=== PATIENT | female | born 1950 | race Caucasian/White ===

== ENCOUNTER 2018-12-18 15:34 | Inpatient (IN) ==
[2018-12-18 17:02] LABS: Eosinophils # 0.2 10*3/uL (0.0-0.87); Hematocrit 26.8 VOL% (35.7-47.0); Hemoglobin 7.6 GM/DL (12.0-16.0); Immature Granulocytes % 0.3 %; Immature Granulocytes Absolute 0.02 #; Lymphocytes # 0.6 10*3/uL (1.4-4.0); Lymphocytes % 7.4 % (21.3-54.2); Mean Corpuscular HGB Conc 28.4 GM/DL (32-36); Mean Corpuscular Hemoglobin 24 PG (27-34); Mean Corpuscular Volume 85.6 FL (87-102); Mean Platelet Volume 11.7 FL (9.6-12.0); Monocytes # 0.7 10*3/uL (0.11-0.8); Neutrophils # 6.2 10*3/uL (1.4-7.4); Neutrophils % 81.3 % (38.7-73.9); Platelet Count 217 T/CUMM (130-400); Red Blood Count 3.13 MC/CUMM (3.8-5.5); Red Cell Distribution Width 17.4 % (9.3-17.3); White Blood Count 7.7 T/CUMM (4-12)
[2018-12-18 17:17] LABS: Alanine Aminotransferase 37 U/L (13-56); Albumin 2.8 G/DL (3.4-5.0); Alkaline Phosphatase 148 U/L (45-117); Aspartate Amino Transferase 35 U/L (0-37); Blood Urea Nitrogen 128 MG/DL (7-18); Calcium 8.4 MG/DL (8.5-10.1); Glucose 178 MG/DL (74-106); Osmolality,Calculated 325.3 MOS/KG (273-304); Potassium 4.8 MMOL/L (3.5-5.1); Sodium 141 MMOL/L (136-145); Total Protein 7.2 G/DL (6.4-8.3)
[2018-12-18 17:19] LABS: Troponin I 0.052 NG/ML (0.00-0.045)
[2018-12-18 17:22] LABS: PT Patient Result 68.9 SECS
[2018-12-18 17:26] LABS: INR 6.4
[2018-12-18] MEDS ORDERED: FUROSEMIDE 40 MG/4 ML VIAL IV STA (17:29)
[2018-12-18] MEDS ORDERED: PHYTONADIONE 5 MG/5 ML ORAL.SYR PO ONE (17:30)
[2018-12-18] MEDS ORDERED: guaiFENesin/DM ER 600-30 MG TABLET PO PRN (18:33)
[2018-12-18] MEDS ORDERED: NICOTINE 21 MG/24 HR PATCH TRANSDERM PRN (18:33)
[2018-12-18] MEDS ORDERED: ONDANSETRON 4 MG/2 ML VIAL IV PRN (18:33)
[2018-12-18] MEDS ORDERED: LACTULOSE 20 GM/30 ML UDCUP PO PRN (18:33)
[2018-12-18] MEDS ORDERED: DOCUSATE SODIUM 100 MG CAPSULE PO PRN (18:33)
[2018-12-18] MEDS ORDERED: ALBUTEROL 2.5 MG/3 ML NEB RESP TX PRN (18:58)
[2018-12-18 19:20] LABS: % Iron Saturation 4.1 % (18-50); Ferritin 70.3 ng/ml (8-252)
[2018-12-18 19:31] LABS: Folate > 24.0 NG/ML (5.4-24.0); Vitamin B12 487 PG/ML (211-911)
[2018-12-18] MEDS ORDERED: cefTRIAXone 1,000 MG in SYRINGE 1 EACH IV SCH (20:30)
[2018-12-18] MEDS ORDERED: SIMVASTATIN 20 MG TABLET PO SCH (21:00)
[2018-12-18] MEDS ORDERED: AZITHROMYCIN INJ 500 MG in SODIUM CHLORIDE 0.9% 250 ML IV SCH (21:00)
[2018-12-18 21:47] LABS: Anisocytosis 2+; Hypochromasia 1+; Ovalocytes Few
[2018-12-18] MEDS: CARVEDILOL 6.25 MG TABLET PO SCH (21:47)
[2018-12-18 21:48] LABS: Acanthocytes Few; Platelet Estimate Normal
[2018-12-18] MEDS: FLUTICASONE/SALMETEROL 500-50 DISKUS 14 DOSE INH SCH (21:48)
[2018-12-18 21:49] LABS: Elliptocytes Few
[2018-12-19 05:16] LABS: Eosinophils # 0.1 10*3/uL (0.0-0.87); Hemoglobin 6.5 GM/DL (12.0-16.0); Immature Granulocytes % 1.2 %; Immature Granulocytes Absolute 0.07 #; Lymphocytes # 0.4 10*3/uL (1.4-4.0); Lymphocytes % 7.2 % (21.3-54.2); Mean Corpuscular HGB Conc 28.3 GM/DL (32-36); Mean Corpuscular Hemoglobin 24 PG (27-34); Mean Corpuscular Volume 85.2 FL (87-102); Mean Platelet Volume 12.4 FL (9.6-12.0); Monocytes # 0.6 10*3/uL (0.11-0.8); Monocytes % 10.2 % (1.7-12.7); Neutrophils # 4.7 10*3/uL (1.4-7.4); Neutrophils % 79.4 % (38.7-73.9); Platelet Count 187 T/CUMM (130-400); Red Cell Distribution Width 17.5 % (9.3-17.3); White Blood Count 5.9 T/CUMM (4-12)
[2018-12-19 05:35] LABS: INR 6.4; PT Patient Result 68.8 SECS
[2018-12-19 05:44] LABS: Albumin 2.5 G/DL (3.4-5.0); Calcium 8.1 MG/DL (8.5-10.1); Osmolality,Calculated 327.8 MOS/KG (273-304); Potassium 4.8 MMOL/L (3.5-5.1); Thyroid Stimulating Hormone 0.742 uIU/ml (0.358-3.74); Total Protein 6.4 G/DL (6.4-8.3)
[2018-12-19 05:49] LABS: Acanthocytes Few; Anisocytosis 1+; Hypochromasia 2+; Microcytosis 1+; Ovalocytes Few; Poikilocytosis 1+
[2018-12-19 05:50] LABS: Platelet Estimate Adequate
[2018-12-19] MEDS: CARVEDILOL 6.25 MG TABLET PO SCH (08:06)
[2018-12-19] MEDS ORDERED: ACETAMINOPHEN 325 MG TABLET PO PRN (08:54)
[2018-12-19] MEDS ORDERED: PHYTONADIONE 10 MG/1 ML AMP IV ONE (08:54)
[2018-12-19] MEDS ORDERED: SODIUM CHLORIDE 0.9% 1,000 ML IV PRN (08:54)
[2018-12-19] MEDS ORDERED: diphenhydrAMINE 50 MG/1 ML VIAL IV PRN (08:54)
[2018-12-19] MEDS ORDERED: DILTIAZEM 90 MG TABLET PO SCH (09:00)
[2018-12-19] MEDS ORDERED: SERTRALINE 50 MG TABLET PO SCH (09:00)
[2018-12-19] MEDS ORDERED: LEVOTHYROXINE 88 MCG TABLET PO SCH (09:00)
[2018-12-19] MEDS ORDERED: LOSARTAN 50 MG TABLET PO SCH (09:00)
[2018-12-19] MEDS ORDERED: FUROSEMIDE 40 MG/4 ML VIAL IV SCH ×2 (09:00)
[2018-12-19] MEDS ORDERED: PANTOPRAZOLE 40 MG TABLET PO SCH (09:00)
[2018-12-19] MEDS ORDERED: SPIRONOLACTONE 25 MG TABLET PO SCH (09:00)
[2018-12-19] MEDS: FLUTICASONE/SALMETEROL 500-50 DISKUS 14 DOSE INH SCH (10:13)
[2018-12-19] MEDS: AMIODARONE 200 MG TABLET PO SCH (10:37)
[2018-12-19] MEDS ORDERED: INSULIN NPH/REGULAR 70/30 100 UNIT/ML SUBCUT ONE (11:07)
[2018-12-19 11:32] LABS: ABG Base Excess -10.5 MMOL/L (-2.5-2.5); ABG HCO3 15.1 MMOL/L (20-26); ABG Oxygen Saturation 17.5 % (95-100); ABG TCO2 21.9 MMOL/L (23-27)
[2018-12-19 11:35] LABS: ABG PCO2 86.1 MM HG (35-48)
[2018-12-19 11:36] LABS: ABG PH 7.007 (7.35-7.45); ABG PO2 21.8 MM HG (80-95)
[2018-12-19 11:47] LABS: Albumin 2.2 G/DL (3.4-5.0); Bilirubin,Total 0.5 MG/DL (0.2-1.0); Calcium 10.7 MG/DL (8.5-10.1); Osmolality,Calculated 342.1 MOS/KG (273-304); Potassium 5.8 MMOL/L (3.5-5.1); Total Protein 5.9 G/DL (6.4-8.3)
[2018-12-19 11:49] LABS: Troponin I 0.071 NG/ML (0.00-0.045)
[2018-12-19 12:09] LABS: Basophils % 0.2 % (0.0-0.8); Eosinophils # 0.1 10*3/uL (0.0-0.87); Eosinophils % 0.7 % (0.00-10.9); Hematocrit 27.6 VOL% (35.7-47.0); Hemoglobin 7.7 GM/DL (12.0-16.0); Immature Granulocytes % 6.8 %; Immature Granulocytes Absolute 0.85 #; Lymphocytes # 4.3 10*3/uL (1.4-4.0); Mean Corpuscular HGB Conc 27.9 GM/DL (32-36); Mean Corpuscular Hemoglobin 24 PG (27-34); Mean Corpuscular Volume 87.1 FL (87-102); Mean Platelet Volume 13.2 FL (9.6-12.0); Monocytes # 0.4 10*3/uL (0.11-0.8); Monocytes % 3.2 % (1.7-12.7); NRBC # 0.25 10*3/uL; Neutrophils # 6.9 10*3/uL (1.4-7.4); Neutrophils % 55.1 % (38.7-73.9); Platelet Count 204 T/CUMM (130-400); Red Blood Count 3.17 MC/CUMM (3.8-5.5); Red Cell Distribution Width 17.8 % (9.3-17.3); White Blood Count 12.6 T/CUMM (4-12)
[2018-12-19 12:17] LABS: Band Neutrophils 4 % (0-10); Elliptocytes Few; Eosinophils 3 % (0-10); Hypochromasia 1+; Lymphocytes 40 % (20-55); Nucleated Red Blood Cells 2 (0-5); Platelet Estimate Adequate; Segmented Neutrophils 44 % (50-85); Total Cells Counted 100
[2018-12-19 12:18] LABS: Burr Cells Slight; Microcytosis 1+
[2018-12-19] MEDS ORDERED: ALBUMIN 25% 25 GM in PREMIX 1 EACH IV ONE ×2 (12:18→13:30)
[2018-12-19] MEDS: SODIUM CHLORIDE 0.9% 1,000 ML IV SCH ×2 (12:30→17:31)
[2018-12-19] MEDS ORDERED: VANCOMYCIN INJ 1,250 MG in SODIUM CHLORIDE 0.9% 250 ML IV ONE ×2 (12:30→18:30)
[2018-12-19 12:46] LABS: PT Patient Result 73.1 SECS
[2018-12-19 12:47] LABS: INR 6.8
[2018-12-19 12:52] LABS: Calcium 7.7 MG/DL (8.5-10.1); Osmolality,Calculated 346.9 MOS/KG (273-304); Potassium 5.1 MMOL/L (3.5-5.1)
[2018-12-19] MEDS: NOREPINEPHRINE 8 MG in SODIUM CHLORIDE 0.9% 242 ML IV PRN (13:10)
[2018-12-19] MEDS: PROPOFOL 1,000 MG/100 ML BOTTLE IV SCH ×2 (13:15→17:33)
[2018-12-19 13:54] LABS: Amorphous Crystals,Urine Occasional /HPF (Few); Apearance,Urine CLOUDY (Clear); Bilirubin,Urine Negative (Negative); Blood, Urine Negative (Negative); Glucose,Urine (UA) Negative (Negative); Ketones,Urine 5 mg/dL (Negative); Mucus,Urine Occasional /LPF (Occasional); Nitrite,Urine Negative (Negative); Protein,Urine 100 MG/DL; Urine Color Amber (Yellow); Urine Specific Gravity 1.017 (1.001-1.035)
[2018-12-19] MEDS ORDERED: DEXTROSE 50% 25 GM/50 ML SYRINGE IV PRN (14:05)
[2018-12-19] MEDS ORDERED: GLUCAGON 1 MG VIAL IM PRN (14:05)
[2018-12-19] MEDS ORDERED: POTASSIUM CHLORIDE RIDER 100 ML IV PRN (14:08)
[2018-12-19] MEDS ORDERED: PHENYLEPHRINE DRIP 40 MG/250 ML PREMIX IV PRN (14:09)
[2018-12-19] MEDS ORDERED: MAGNESIUM SULF RIDER 1 GM in PREMIX 1 EACH IV PRN (14:09)
[2018-12-19] MEDS ORDERED: fentaNYL 100 MCG/2 ML VIAL IV ONE (14:30)
[2018-12-19] MEDS ORDERED: CISATRACURIUM 10 MG/5 ML VIAL IV ONE (14:30)
[2018-12-19] MEDS: fentaNYL INJ 1,250 MCG in SODIUM CHLORIDE 0.9% 225 ML IV PRN (14:49)
[2018-12-19] MEDS: CISATRACURIUM 200 MG in SODIUM CHLORIDE 0.9% 180 ML IV SCH (14:50)
[2018-12-19] MEDS: MINERAL OIL/PETROLATUM OPH OINT 3.5 GM TUBE BOTH EYES SCH ×2 (15:00→20:53)
[2018-12-19 15:20] LABS: Hematocrit 22.3 VOL% (35.7-47.0); Hemoglobin 6.7 GM/DL (12.0-16.0)
[2018-12-19 15:24] LABS: ABG Base Excess 0.3 MMOL/L (-2.5-2.5); ABG HCO3 24.7 MMOL/L (20-26); ABG PCO2 33.8 MM HG (35-48); ABG PH 7.453 (7.35-7.45); ABG TCO2 20.8 MMOL/L (23-27)
[2018-12-19 15:37] LABS: Calcium 7.7 MG/DL (8.5-10.1); Osmolality,Calculated 342.9 MOS/KG (273-304); Potassium 4.4 MMOL/L (3.5-5.1)
[2018-12-19] MEDS: INSULIN REGULAR 100 UNIT/ML IV SCH ×2 (16:50→20:33)
[2018-12-19] MEDS: FUROSEMIDE 40 MG/4 ML VIAL IV SCH ×2 (16:56→21:19)
[2018-12-19] MEDS: methylPREDNISolone SOD SUC 40 MG/1 ML VIAL IV SCH (16:56)
[2018-12-19] MEDS: PANTOPRAZOLE 40 MG VIAL IV SCH (16:56)
[2018-12-19] MEDS ORDERED: AMIODARONE INJ 150 MG in DEXTROSE 5% 100 ML IV ONE (17:08)
[2018-12-19] MEDS ORDERED: AMIODARONE 150 MG/3 ML VIAL ONE (17:10)
[2018-12-19] MEDS: PIPERACILLIN/TAZOBACTAM 3,375 MG in SODIUM CHLORIDE 0.9% 100 ML IV SCH (17:23)
[2018-12-19] MEDS ORDERED: AMIODARONE INJ 450 MG in DEXTROSE 5% 241 ML IV SCH (17:30)
[2018-12-19 18:15] LABS: Basophils % 0.1 % (0.0-0.8); Eosinophils # 0.1 10*3/uL (0.0-0.87); Eosinophils % 0.7 % (0.00-10.9); Hematocrit 21.8 VOL% (35.7-47.0); Hemoglobin 6.5 GM/DL (12.0-16.0); Immature Granulocytes % 1.2 %; Immature Granulocytes Absolute 0.18 #; Lymphocytes # 0.5 10*3/uL (1.4-4.0); Lymphocytes % 3.5 % (21.3-54.2); Mean Corpuscular HGB Conc 29.8 GM/DL (32-36); Mean Corpuscular Hemoglobin 25 PG (27-34); Mean Corpuscular Volume 82.9 FL (87-102); Mean Platelet Volume 11.6 FL (9.6-12.0); Monocytes # 0.7 10*3/uL (0.11-0.8); Monocytes % 4.7 % (1.7-12.7); NRBC # 0.03 10*3/uL; Neutrophils # 13.4 10*3/uL (1.4-7.4); Neutrophils % 89.8 % (38.7-73.9); Platelet Count 226 T/CUMM (130-400); Red Blood Count 2.63 MC/CUMM (3.8-5.5); Red Cell Distribution Width 17.6 % (9.3-17.3)
[2018-12-19 18:27] LABS: INR 4.7
[2018-12-19 18:28] LABS: PT Patient Result 50.7 SECS; Partial Thromboplastin Time 57.7 SECS (0-40)
[2018-12-19 18:32] LABS: CKMB % 2.8 %; Calcium 7.7 MG/DL (8.5-10.1)
[2018-12-19 18:33] LABS: CKMB % 2.6 %
[2018-12-19 18:34] LABS: Troponin I 0.999 NG/ML (0.00-0.045)
[2018-12-19 18:35] LABS: Troponin I 0.979 NG/ML (0.00-0.045)
[2018-12-19 18:36] LABS: Band Neutrophils 1 % (0-10); Hypochromasia 1+; Ovalocytes Slight; Polychromasia Slight; Segmented Neutrophils 96 % (50-85); Total Cells Counted 100
[2018-12-19 18:37] LABS: Elliptocytes Few; Platelet Estimate Adequate
[2018-12-20] MEDS: methylPREDNISolone SOD SUC 40 MG/1 ML VIAL IV SCH ×3 (00:36→17:50)
[2018-12-20] MEDS: INSULIN REGULAR 100 UNIT/ML IV SCH ×6 (00:39→21:38)
[2018-12-20] MEDS: NOREPINEPHRINE 8 MG in SODIUM CHLORIDE 0.9% 242 ML IV PRN (00:42)
[2018-12-20] MEDS: AMIODARONE INJ 450 MG in DEXTROSE 5% 241 ML IV SCH ×2 (00:57→17:14)
[2018-12-20 00:59] LABS: Basophils % 0.1 % (0.0-0.8); Eosinophils % 0.2 % (0.00-10.9); Hematocrit 24.8 VOL% (35.7-47.0); Hemoglobin 7.9 GM/DL (12.0-16.0); Immature Granulocytes % 0.8 %; Immature Granulocytes Absolute 0.08 #; Lymphocytes # 0.2 10*3/uL (1.4-4.0); Lymphocytes % 1.8 % (21.3-54.2); Mean Corpuscular HGB Conc 31.9 GM/DL (32-36); Mean Corpuscular Hemoglobin 26 PG (27-34); Mean Corpuscular Volume 82.7 FL (87-102); Mean Platelet Volume 11.2 FL (9.6-12.0); Monocytes # 0.3 10*3/uL (0.11-0.8); Monocytes % 3.4 % (1.7-12.7); Neutrophils # 9.5 10*3/uL (1.4-7.4); Neutrophils % 93.7 % (38.7-73.9); Platelet Count 153 T/CUMM (130-400); Red Cell Distribution Width 16.9 % (9.3-17.3); White Blood Count 10.1 T/CUMM (4-12)
[2018-12-20 01:08] LABS: INR 2.8
[2018-12-20 01:10] LABS: PT Patient Result 29.9 SECS; Partial Thromboplastin Time 42.7 SECS (0-40)
[2018-12-20 01:23] LABS: CKMB % 4.3 %; Calcium 7.5 MG/DL (8.5-10.1); Osmolality,Calculated 340.3 MOS/KG (273-304); Potassium 3.9 MMOL/L (3.5-5.1)
[2018-12-20 02:35] LABS: Lymphocytes 1 % (20-55); Platelet Estimate Adequate; Polychromasia Slight; Segmented Neutrophils 97 % (50-85); Total Cells Counted 100
[2018-12-20 04:34] LABS: ABG Base Excess -2.5 MMOL/L (-2.5-2.5); ABG HCO3 22.4 MMOL/L (20-26); ABG PCO2 23.8 MM HG (35-48); ABG PH 7.521 (7.35-7.45)
[2018-12-20] MEDS: FUROSEMIDE 40 MG/4 ML VIAL IV SCH ×2 (05:58→17:40)
[2018-12-20] MEDS: LEVOTHYROXINE 100 MCG VIAL IV SCH (06:02)
[2018-12-20 06:03] LABS: Basophils % 0.1 % (0.0-0.8); Hematocrit 23.7 VOL% (35.7-47.0); Hemoglobin 7.8 GM/DL (12.0-16.0); Immature Granulocytes % 1.3 %; Immature Granulocytes Absolute 0.11 #; Lymphocytes # 0.2 10*3/uL (1.4-4.0); Lymphocytes % 2.1 % (21.3-54.2); Mean Corpuscular HGB Conc 32.9 GM/DL (32-36); Mean Corpuscular Hemoglobin 27 PG (27-34); Mean Corpuscular Volume 80.9 FL (87-102); Mean Platelet Volume 11.2 FL (9.6-12.0); Monocytes # 0.2 10*3/uL (0.11-0.8); Monocytes % 2.4 % (1.7-12.7); Neutrophils # 8.1 10*3/uL (1.4-7.4); Neutrophils % 94.1 % (38.7-73.9); Platelet Count 143 T/CUMM (130-400); Red Blood Count 2.93 MC/CUMM (3.8-5.5); Red Cell Distribution Width 16.4 % (9.3-17.3); White Blood Count 8.6 T/CUMM (4-12)
[2018-12-20] MEDS: PIPERACILLIN/TAZOBACTAM 3,375 MG in SODIUM CHLORIDE 0.9% 100 ML IV SCH ×2 (06:06→18:15)
[2018-12-20 06:19] LABS: INR 2.9
[2018-12-20 06:20] LABS: PT Patient Result 31.5 SECS; Partial Thromboplastin Time 41.8 SECS (0-40)
[2018-12-20 06:26] LABS: Band Neutrophils 8 % (0-10); Elliptocytes Few; Hypochromasia 1+; Lymphocytes 2 % (20-55); Platelet Estimate Adequate; Segmented Neutrophils 88 % (50-85); Total Cells Counted 100
[2018-12-20 06:31] LABS: CKMB % 5.5 %; Calcium 7.5 MG/DL (8.5-10.1); Osmolality,Calculated 337.3 MOS/KG (273-304); Potassium 3.6 MMOL/L (3.5-5.1)
[2018-12-20 06:33] LABS: Troponin I 0.494 NG/ML (0.00-0.045)
[2018-12-20] MEDS: CISATRACURIUM 200 MG in SODIUM CHLORIDE 0.9% 180 ML IV SCH ×2 (06:35→22:07)
[2018-12-20] MEDS: PANTOPRAZOLE 40 MG VIAL IV SCH (09:33)
[2018-12-20] MEDS: MINERAL OIL/PETROLATUM OPH OINT 3.5 GM TUBE BOTH EYES SCH ×3 (09:35→22:10)
[2018-12-20 11:47] LABS: Basophils % 0.1 % (0.0-0.8); Hematocrit 23.3 VOL% (35.7-47.0); Hemoglobin 7.4 GM/DL (12.0-16.0); Immature Granulocytes % 0.8 %; Immature Granulocytes Absolute 0.08 #; Lymphocytes # 0.2 10*3/uL (1.4-4.0); Lymphocytes % 1.7 % (21.3-54.2); Mean Corpuscular HGB Conc 31.8 GM/DL (32-36); Mean Corpuscular Hemoglobin 26 PG (27-34); Mean Corpuscular Volume 81.8 FL (87-102); Mean Platelet Volume 12.4 FL (9.6-12.0); Monocytes # 0.1 10*3/uL (0.11-0.8); Monocytes % 1.3 % (1.7-12.7); NRBC # 0.02 10*3/uL; Neutrophils # 9.1 10*3/uL (1.4-7.4); Neutrophils % 96.1 % (38.7-73.9); Platelet Count 154 T/CUMM (130-400); Red Blood Count 2.85 MC/CUMM (3.8-5.5); Red Cell Distribution Width 16.7 % (9.3-17.3); White Blood Count 9.5 T/CUMM (4-12)
[2018-12-20 12:09] LABS: CKMB % 6.6 %; Calcium 7.4 MG/DL (8.5-10.1); Osmolality,Calculated 339.1 MOS/KG (273-304); Potassium 4.1 MMOL/L (3.5-5.1)
[2018-12-20 12:10] LABS: Troponin I 0.365 NG/ML (0.00-0.045)
[2018-12-20 12:14] LABS: INR 2.7; PT Patient Result 28.9 SECS; Partial Thromboplastin Time 42.5 SECS (0-40)
[2018-12-20 12:18] LABS: Band Neutrophils 36 % (0-10); Lymphocytes 3 % (20-55); Nucleated Red Blood Cells 1 (0-5); Platelet Estimate Adequate; Segmented Neutrophils 59 % (50-85); Smudge Cells Few; Total Cells Counted 100
[2018-12-20 12:19] LABS: Anisocytosis 2+
[2018-12-20 12:22] LABS: Poikilocytosis Slight
[2018-12-20] MEDS: fentaNYL INJ 1,250 MCG in SODIUM CHLORIDE 0.9% 225 ML IV PRN (12:54)
[2018-12-20 14:17] LABS: Hematocrit 23.1 VOL% (35.7-47.0); Hemoglobin 7.3 GM/DL (12.0-16.0)
[2018-12-20] MEDS: SODIUM CHLORIDE 0.45% 1,000 ML IV SCH (15:09)
[2018-12-20] MEDS: AMIODARONE 200 MG TABLET PO SCH (16:30)
[2018-12-20] MEDS: PROPOFOL 1,000 MG/100 ML BOTTLE IV SCH (16:47)
[2018-12-20 18:09] LABS: Basophils % 0.1 % (0.0-0.8); Hematocrit 23.3 VOL% (35.7-47.0); Hemoglobin 7.4 GM/DL (12.0-16.0); Immature Granulocytes % 0.3 %; Immature Granulocytes Absolute 0.03 #; Lymphocytes # 0.2 10*3/uL (1.4-4.0); Lymphocytes % 2.1 % (21.3-54.2); Mean Corpuscular HGB Conc 31.8 GM/DL (32-36); Mean Corpuscular Hemoglobin 26 PG (27-34); Mean Corpuscular Volume 81.8 FL (87-102); Mean Platelet Volume 12.1 FL (9.6-12.0); Monocytes # 0.1 10*3/uL (0.11-0.8); Monocytes % 1.3 % (1.7-12.7); NRBC # 0.03 10*3/uL; Neutrophils # 9.8 10*3/uL (1.4-7.4); Neutrophils % 96.2 % (38.7-73.9); Platelet Count 165 T/CUMM (130-400); Red Blood Count 2.85 MC/CUMM (3.8-5.5); Red Cell Distribution Width 16.8 % (9.3-17.3); White Blood Count 10.2 T/CUMM (4-12)
[2018-12-20 18:18] LABS: INR 2.6
[2018-12-20 18:25] LABS: PT Patient Result 28.4 SECS; Partial Thromboplastin Time 42.5 SECS (0-40)
[2018-12-20 18:26] LABS: Calcium 7.6 MG/DL (8.5-10.1); Osmolality,Calculated 335.3 MOS/KG (273-304); Potassium 4.4 MMOL/L (3.5-5.1)
[2018-12-20 18:31] LABS: Band Neutrophils 9 % (0-10); Hypochromasia 1+; Lymphocytes 3 % (20-55); Platelet Estimate Normal; Segmented Neutrophils 87 % (50-85); Total Cells Counted 100
[2018-12-20 18:32] LABS: Target Cells Few
[2018-12-20 18:33] LABS: Microcytosis Slight
[2018-12-21 00:35] LABS: INR 2.2; Partial Thromboplastin Time 39.7 SECS (0-40)
[2018-12-21 00:42] LABS: Calcium 7.5 MG/DL (8.5-10.1); Osmolality,Calculated 334.4 MOS/KG (273-304); Potassium 4.6 MMOL/L (3.5-5.1)
[2018-12-21] MEDS: INSULIN REGULAR 100 UNIT/ML IV SCH ×6 (00:55→21:16)
[2018-12-21 01:01] LABS: PT Patient Result 24.2 SECS
[2018-12-21 01:36] LABS: Basophils % 0.2 % (0.0-0.8); Hematocrit 31.6 VOL% (35.7-47.0); Immature Granulocytes Absolute 0.21 #; Lymphocytes # 0.2 10*3/uL (1.4-4.0); Lymphocytes % 1.1 % (21.3-54.2); Mean Corpuscular Hemoglobin 27 PG (27-34); Mean Corpuscular Volume 85.2 FL (87-102); Mean Platelet Volume 12.3 FL (9.6-12.0); Monocytes # 0.4 10*3/uL (0.11-0.8); NRBC # 0.09 10*3/uL; Neutrophils # 20.6 10*3/uL (1.4-7.4); Neutrophils % 95.7 % (38.7-73.9); Platelet Count 208 T/CUMM (130-400); White Blood Count 21.5 T/CUMM (4-12)
[2018-12-21 01:40] LABS: Hemoglobin 10.1 GM/DL (12.0-16.0)
[2018-12-21 01:41] LABS: Red Blood Count 3.71 MC/CUMM (3.8-5.5)
[2018-12-21] MEDS: methylPREDNISolone SOD SUC 40 MG/1 ML VIAL IV SCH ×3 (02:21→17:23)
[2018-12-21 03:47] LABS: Band Neutrophils 9 % (0-10); Lymphocytes 2 % (20-55); Platelet Estimate Normal; Segmented Neutrophils 89 % (50-85); Total Cells Counted 100
[2018-12-21 03:48] LABS: Acanthocytes 1+; Anisocytosis 1+; Hypochromasia 2+; Macrocytosis 1+; Ovalocytes 1+; Target Cells Few
[2018-12-21] MEDS: NOREPINEPHRINE 8 MG in SODIUM CHLORIDE 0.9% 242 ML IV PRN ×5 (03:54→20:52)
[2018-12-21] MEDS: AMIODARONE INJ 450 MG in DEXTROSE 5% 241 ML IV SCH ×2 (03:55→19:40)
[2018-12-21] MEDS ORDERED: SODIUM CHLORIDE 0.9% 250 ML IV ONE ×2 (04:19→08:00)
[2018-12-21 05:31] LABS: ABG Base Excess -6.6 MMOL/L (-2.5-2.5); ABG Oxygen Saturation 95.5 % (95-100); ABG PH 7.325 (7.35-7.45); ABG PO2 82.9 MM HG (80-95); ABG TCO2 17.1 MMOL/L (23-27)
[2018-12-21 05:37] LABS: Basophils # 0.1 10*3/uL (0.0-0.2); Basophils % 0.2 % (0.0-0.8); Hematocrit 32.1 VOL% (35.7-47.0); Hemoglobin 10.1 GM/DL (12.0-16.0); Immature Granulocytes % 0.9 %; Immature Granulocytes Absolute 0.26 #; Lymphocytes # 0.4 10*3/uL (1.4-4.0); Lymphocytes % 1.3 % (21.3-54.2); Mean Corpuscular HGB Conc 31.5 GM/DL (32-36); Mean Corpuscular Hemoglobin 27 PG (27-34); Mean Corpuscular Volume 86.5 FL (87-102); Mean Platelet Volume 11.6 FL (9.6-12.0); Monocytes # 0.6 10*3/uL (0.11-0.8); Monocytes % 2.1 % (1.7-12.7); NRBC # 0.16 10*3/uL; Neutrophils # 26.3 10*3/uL (1.4-7.4); Neutrophils % 95.5 % (38.7-73.9); Platelet Count 213 T/CUMM (130-400); Red Blood Count 3.71 MC/CUMM (3.8-5.5); Red Cell Distribution Width 17.8 % (9.3-17.3); White Blood Count 27.5 T/CUMM (4-12)
[2018-12-21 05:59] LABS: Albumin 2.2 G/DL (3.4-5.0); Bilirubin,Total 6.7 MG/DL (0.2-1.0); Calcium 7.6 MG/DL (8.5-10.1); Osmolality,Calculated 328.6 MOS/KG (273-304); Potassium 4.9 MMOL/L (3.5-5.1); Total Protein 5.4 G/DL (6.4-8.3)
[2018-12-21] MEDS: FUROSEMIDE 40 MG/4 ML VIAL IV SCH (06:06)
[2018-12-21 06:12] LABS: PT Patient Result 21.6 SECS
[2018-12-21] MEDS: PIPERACILLIN/TAZOBACTAM 3,375 MG in SODIUM CHLORIDE 0.9% 100 ML IV SCH (06:12)
[2018-12-21 06:23] LABS: Band Neutrophils 13 % (0-10); Lymphocytes 1 % (20-55); Segmented Neutrophils 83 % (50-85); Total Cells Counted 100
[2018-12-21 06:24] LABS: Anisocytosis 1+; Burr Cells Few; Hypochromasia 1+; Microcytosis 1+; Platelet Estimate Adequate; Target Cells Slight
[2018-12-21] MEDS: LEVOTHYROXINE 100 MCG VIAL IV SCH (06:27)
[2018-12-21 07:32] LABS: Troponin I 0.245 NG/ML (0.00-0.045)
[2018-12-21] MEDS: PROPOFOL 1,000 MG/100 ML BOTTLE IV SCH ×2 (07:59→17:16)
[2018-12-21] MEDS ORDERED: SODIUM CHLORIDE 0.9% 500 ML IV ONE (08:45)
[2018-12-21] MEDS: PANTOPRAZOLE 40 MG VIAL IV SCH (09:20)
[2018-12-21] MEDS: AMIODARONE 200 MG TABLET PO SCH (09:20)
[2018-12-21] MEDS: MINERAL OIL/PETROLATUM OPH OINT 3.5 GM TUBE BOTH EYES SCH ×3 (09:21→21:17)
[2018-12-21 09:40] LABS: Calcium 7.1 MG/DL (8.5-10.1); Osmolality,Calculated 333.3 MOS/KG (273-304); Potassium 5.1 MMOL/L (3.5-5.1)
[2018-12-21 09:53] LABS: Troponin I 0.731 NG/ML (0.00-0.045)
[2018-12-21] MEDS ORDERED: VANCOMYCIN INJ 1,000 MG in SODIUM CHLORIDE 0.9% 250 ML IV PRN (10:37)
[2018-12-21] MEDS: MEROPENEM 500 MG in SODIUM CHLORIDE 0.9% 100 ML IV SCH (10:45)
[2018-12-21] MEDS: SODIUM CHLORIDE 0.45% 1,000 ML IV SCH (10:49)
[2018-12-21] MEDS ORDERED: VANCOMYCIN INJ 1,000 MG in SODIUM CHLORIDE 0.9% 250 ML IV ONE (11:00)
[2018-12-21] MEDS: HEPARIN DRIP 25,000 UNITS/500 ML PREMIX IV SCH (11:02)
[2018-12-21] MEDS ORDERED: SODIUM CHLORIDE 0.9% 1,000 ML IV ONE (11:25)
[2018-12-21] MEDS: PHENYLEPHRINE INJ 160 MG in SODIUM CHLORIDE 0.9% 234 ML IV PRN (11:40)
[2018-12-21 12:17] LABS: Basophils % 0.1 % (0.0-0.8); Hematocrit 27.9 VOL% (35.7-47.0); Hemoglobin 8.8 GM/DL (12.0-16.0); Immature Granulocytes % 1.8 %; Lymphocytes # 0.4 10*3/uL (1.4-4.0); Lymphocytes % 1.5 % (21.3-54.2); Mean Corpuscular HGB Conc 31.5 GM/DL (32-36); Mean Corpuscular Hemoglobin 27 PG (27-34); Mean Corpuscular Volume 86.1 FL (87-102); Mean Platelet Volume 12.2 FL (9.6-12.0); Monocytes # 0.8 10*3/uL (0.11-0.8); Neutrophils # 26.1 10*3/uL (1.4-7.4); Neutrophils % 93.6 % (38.7-73.9); Platelet Count 213 T/CUMM (130-400); Red Blood Count 3.24 MC/CUMM (3.8-5.5); Red Cell Distribution Width 17.8 % (9.3-17.3); White Blood Count 27.8 T/CUMM (4-12)
[2018-12-21 12:45] LABS: Calcium 6.9 MG/DL (8.5-10.1); Osmolality,Calculated 333.3 MOS/KG (273-304); Potassium 5.2 MMOL/L (3.5-5.1)
[2018-12-21] MEDS ORDERED: MAGNESIUM SULF RIDER 100 ML IV ONE (13:16)
[2018-12-21 13:58] LABS: Band Neutrophils 5 % (0-10); Nucleated Red Blood Cells 1 (0-5); Segmented Neutrophils 94 % (50-85); Total Cells Counted 100
[2018-12-21 14:00] LABS: Burr Cells 1+; Hypochromasia 1+; Ovalocytes Few
[2018-12-21 14:01] LABS: Platelet Estimate Adequate; Poikilocytosis 1+
[2018-12-21 14:54] LABS: INR 2.1; Partial Thromboplastin Time 39.4 SECS (0-40)
[2018-12-21 14:56] LABS: PT Patient Result 23.2 SECS
[2018-12-21] MEDS ORDERED: SODIUM CHLORIDE 0.9% 1,000 ML IV PRN (15:28)
[2018-12-21] MEDS: SODIUM BICARB INJ 100 MEQ in DEXTROSE 5% 1,000 ML IV SCH (16:00)
[2018-12-21 17:25] LABS: Hematocrit 29.8 VOL% (35.7-47.0); Hemoglobin 9.2 GM/DL (12.0-16.0); Mean Corpuscular Hemoglobin 27 PG (27-34); Mean Corpuscular Volume 87.9 FL (87-102); Red Blood Count 3.39 MC/CUMM (3.8-5.5)
[2018-12-21 17:26] LABS: Basophils # 0.1 10*3/uL (0.0-0.2); Basophils % 0.2 % (0.0-0.8); Immature Granulocytes % 0.8 %; Immature Granulocytes Absolute 0.26 #; Lymphocytes # 0.5 10*3/uL (1.4-4.0); Lymphocytes % 1.5 % (21.3-54.2); Mean Corpuscular HGB Conc 30.9 GM/DL (32-36); Mean Platelet Volume 12.3 FL (9.6-12.0); Monocytes % 3.4 % (1.7-12.7); NRBC # 0.31 10*3/uL; Neutrophils # 29.1 10*3/uL (1.4-7.4); Neutrophils % 94.1 % (38.7-73.9); Platelet Count 235 T/CUMM (130-400); Red Cell Distribution Width 18.3 % (9.3-17.3)
[2018-12-21 17:36] LABS: INR 2.1; Partial Thromboplastin Time 39.7 SECS (0-40)
[2018-12-21 17:39] LABS: Blood Urea Nitrogen 123 MG/DL (7-18); Glucose 162 MG/DL (74-106); Osmolality,Calculated 330.7 MOS/KG (273-304); Potassium 5.3 MMOL/L (3.5-5.1); Sodium 145 MMOL/L (136-145)
[2018-12-21 17:46] LABS: PT Patient Result 22.6 SECS
[2018-12-21 19:55] LABS: Burr Cells 1+; Eosinophils 1 % (0-10); Hypochromasia 1+; Lymphocytes 1 % (20-55); Myelocytes 12 %; Nucleated Red Blood Cells 3 (0-5); Segmented Neutrophils 80 % (50-85); Total Cells Counted 100
[2018-12-21 19:56] LABS: Ovalocytes Few; Platelet Estimate Adequate
[2018-12-22] MEDS: NOREPINEPHRINE 8 MG in SODIUM CHLORIDE 0.9% 242 ML IV PRN ×7 (00:30→22:04)
[2018-12-22] MEDS: methylPREDNISolone SOD SUC 40 MG/1 ML VIAL IV SCH ×3 (00:49→18:23)
[2018-12-22] MEDS: INSULIN REGULAR 100 UNIT/ML IV SCH ×4 (00:49→14:19)
[2018-12-22 01:00] LABS: Basophils # 0.1 10*3/uL (0.0-0.2); Basophils % 0.2 % (0.0-0.8); Hematocrit 29.1 VOL% (35.7-47.0); Immature Granulocytes % 1.1 %; Lymphocytes # 0.8 10*3/uL (1.4-4.0); Lymphocytes % 2.1 % (21.3-54.2); Mean Corpuscular HGB Conc 30.9 GM/DL (32-36); Mean Corpuscular Hemoglobin 27 PG (27-34); Mean Corpuscular Volume 87.4 FL (87-102); Mean Platelet Volume 12.4 FL (9.6-12.0); Monocytes # 1.3 10*3/uL (0.11-0.8); Monocytes % 3.6 % (1.7-12.7); NRBC # 0.34 10*3/uL; Neutrophils # 33.5 10*3/uL (1.4-7.4); Platelet Count 220 T/CUMM (130-400); Red Blood Count 3.33 MC/CUMM (3.8-5.5); Red Cell Distribution Width 18.4 % (9.3-17.3)
[2018-12-22 01:07] LABS: Partial Thromboplastin Time 40.4 SECS (0-40)
[2018-12-22 01:09] LABS: PT Patient Result 21.9 SECS
[2018-12-22 01:12] LABS: Calcium 7.1 MG/DL (8.5-10.1); Osmolality,Calculated 335.6 MOS/KG (273-304); Potassium 5.6 MMOL/L (3.5-5.1)
[2018-12-22 03:09] LABS: Band Neutrophils 4 % (0-10); Lymphocytes 2 % (20-55); Platelet Estimate Normal; Segmented Neutrophils 91 % (50-85); Total Cells Counted 100
[2018-12-22 03:10] LABS: Ovalocytes Few
[2018-12-22 05:01] LABS: ABG Base Excess -10.4 MMOL/L (-2.5-2.5); ABG HCO3 16.1 MMOL/L (20-26); ABG Oxygen Saturation 93.3 % (95-100); ABG PCO2 40.7 MM HG (35-48); ABG PH 7.223 (7.35-7.45); ABG PO2 74.2 MM HG (80-95); ABG TCO2 15.8 MMOL/L (23-27)
[2018-12-22 05:08] LABS: Basophils # 0.1 10*3/uL (0.0-0.2); Basophils % 0.3 % (0.0-0.8); Hematocrit 28.6 VOL% (35.7-47.0); Immature Granulocytes Absolute 0.36 #; Lymphocytes # 0.7 10*3/uL (1.4-4.0); Lymphocytes % 1.9 % (21.3-54.2); Mean Corpuscular HGB Conc 31.5 GM/DL (32-36); Mean Corpuscular Hemoglobin 27 PG (27-34); Mean Corpuscular Volume 87.2 FL (87-102); Mean Platelet Volume 12.2 FL (9.6-12.0); Monocytes # 1.2 10*3/uL (0.11-0.8); Monocytes % 3.3 % (1.7-12.7); NRBC # 0.35 10*3/uL; Neutrophils # 34.3 10*3/uL (1.4-7.4); Neutrophils % 93.5 % (38.7-73.9); Platelet Count 219 T/CUMM (130-400); Red Blood Count 3.28 MC/CUMM (3.8-5.5); Red Cell Distribution Width 18.5 % (9.3-17.3); White Blood Count 36.6 T/CUMM (4-12)
[2018-12-22 05:21] LABS: PT Patient Result 21.4 SECS
[2018-12-22 05:41] LABS: Albumin 2.1 G/DL (3.4-5.0); Bilirubin,Total 7.6 MG/DL (0.2-1.0); Calcium 7.3 MG/DL (8.5-10.1); Osmolality,Calculated 334.7 MOS/KG (273-304); Potassium 5.6 MMOL/L (3.5-5.1); Total Protein 5.3 G/DL (6.4-8.3)
[2018-12-22] MEDS: LEVOTHYROXINE 100 MCG VIAL IV SCH (06:13)
[2018-12-22 06:22] LABS: Acanthocytes 2+; Anisocytosis 1+; Band Neutrophils 6 % (0-10); Hypochromasia 1+; Lymphocytes 2 % (20-55); Macrocytosis 1+; Metamyelocytes 3 %; Ovalocytes 1+; Platelet Estimate Normal; Segmented Neutrophils 86 % (50-85); Total Cells Counted 100
[2018-12-22 07:33] LABS: Hematocrit 28.3 VOL% (35.7-47.0)
[2018-12-22] MEDS: PANTOPRAZOLE 40 MG VIAL IV SCH (09:05)
[2018-12-22] MEDS: AMIODARONE 200 MG TABLET PO SCH (09:05)
[2018-12-22] MEDS: MEROPENEM 500 MG in SODIUM CHLORIDE 0.9% 100 ML IV SCH (09:05)
[2018-12-22] MEDS: MINERAL OIL/PETROLATUM OPH OINT 3.5 GM TUBE BOTH EYES SCH ×3 (09:06→20:36)
[2018-12-22] MEDS: HEPARIN DRIP 25,000 UNITS/500 ML PREMIX IV SCH (09:35)
[2018-12-22] MEDS ORDERED: NOREPINEPHRINE 4 MG/4 ML VIAL IV ONE (11:09)
[2018-12-22] MEDS ORDERED: LIDOCAINE 1% 20 ML VIAL ONE (12:14)
[2018-12-22] MEDS: AMIODARONE INJ 450 MG in DEXTROSE 5% 241 ML IV SCH (12:40)
[2018-12-22] MEDS: PROPOFOL 1,000 MG/100 ML BOTTLE IV SCH (14:21)
[2018-12-22] MEDS: PHENYLEPHRINE INJ 160 MG in SODIUM CHLORIDE 0.9% 234 ML IV PRN ×2 (14:24→23:29)
[2018-12-22] MEDS: SODIUM BICARB INJ 100 MEQ in DEXTROSE 5% 1,000 ML IV SCH (16:16)
[2018-12-22 17:43] LABS: Hematocrit 28.3 VOL% (35.7-47.0); Hemoglobin 8.7 GM/DL (12.0-16.0)
[2018-12-22] MEDS: INSULIN REGULAR 100 UNIT/ML SUBCUT SCH ×2 (18:00→22:40)
[2018-12-22] MEDS ORDERED: DOPamine 800 MG/250 ML PREMIX IV ONE (18:39)
[2018-12-22] MEDS ORDERED: DOPamine 800 MG/250 ML PREMIX IV PRN (18:40)
[2018-12-23] MEDS: INSULIN REGULAR 100 UNIT/ML SUBCUT SCH ×4 (01:21→13:40)
[2018-12-23] MEDS: methylPREDNISolone SOD SUC 40 MG/1 ML VIAL IV SCH ×2 (01:39→08:23)
[2018-12-23] MEDS: NOREPINEPHRINE 8 MG in SODIUM CHLORIDE 0.9% 242 ML IV PRN ×3 (01:44→09:36)
[2018-12-23] MEDS: AMIODARONE INJ 450 MG in DEXTROSE 5% 241 ML IV SCH (01:46)
[2018-12-23 05:14] LABS: ABG Base Excess -9.6 MMOL/L (-2.5-2.5); ABG HCO3 16.5 MMOL/L (20-26); ABG Oxygen Saturation 96.6 % (95-100); ABG PCO2 36.6 MM HG (35-48); ABG PH 7.272 (7.35-7.45); ABG PO2 100.9 MM HG (80-95); ABG TCO2 17.6 MMOL/L (23-27)
[2018-12-23 05:24] LABS: Basophils # 0.1 10*3/uL (0.0-0.2); Basophils % 0.2 % (0.0-0.8); Hematocrit 27.4 VOL% (35.7-47.0); Hemoglobin 8.6 GM/DL (12.0-16.0); Immature Granulocytes % 3.4 %; Immature Granulocytes Absolute 1.11 #; Lymphocytes # 0.6 10*3/uL (1.4-4.0); Lymphocytes % 1.7 % (21.3-54.2); Mean Corpuscular HGB Conc 31.4 GM/DL (32-36); Mean Corpuscular Hemoglobin 27 PG (27-34); Mean Corpuscular Volume 86.2 FL (87-102); Mean Platelet Volume 12.2 FL (9.6-12.0); Monocytes # 1.1 10*3/uL (0.11-0.8); Monocytes % 3.4 % (1.7-12.7); NRBC # 0.41 10*3/uL; Neutrophils # 29.6 10*3/uL (1.4-7.4); Neutrophils % 91.3 % (38.7-73.9); Platelet Count 172 T/CUMM (130-400); Red Blood Count 3.18 MC/CUMM (3.8-5.5); Red Cell Distribution Width 19.1 % (9.3-17.3); White Blood Count 32.4 T/CUMM (4-12)
[2018-12-23] MEDS: LEVOTHYROXINE 100 MCG VIAL IV SCH (05:30)
[2018-12-23 05:35] LABS: Calcium 7.2 MG/DL (8.5-10.1); Potassium 5.9 MMOL/L (3.5-5.1)
[2018-12-23 05:38] LABS: INR 2.3
[2018-12-23 05:41] LABS: PT Patient Result 25.3 SECS
[2018-12-23 05:47] LABS: Acanthocytes 2+; Band Neutrophils 2 % (0-10); Hypochromasia 2+; Lymphocytes 1 % (20-55); Nucleated Red Blood Cells 3 (0-5); Ovalocytes 1+; Platelet Estimate Normal; Segmented Neutrophils 93 % (50-85); Target Cells 1+; Total Cells Counted 100
[2018-12-23 05:48] LABS: Anisocytosis 2+; Macrocytosis 2+; Microcytosis Slight; Polychromasia 2+
[2018-12-23] MEDS: INSULIN REGULAR 100 UNIT/ML IV SCH (06:52)
[2018-12-23 07:39] VITALS: BP 143/51
[2018-12-23] MEDS: MEROPENEM 500 MG in SODIUM CHLORIDE 0.9% 100 ML IV SCH (08:22)
[2018-12-23] MEDS: PANTOPRAZOLE 40 MG VIAL IV SCH (08:23)
[2018-12-23] MEDS: MINERAL OIL/PETROLATUM OPH OINT 3.5 GM TUBE BOTH EYES SCH (08:24)
[2018-12-23] MEDS: AMIODARONE 200 MG TABLET PO SCH (08:24)
[2018-12-23] MEDS: PHENYLEPHRINE INJ 160 MG in SODIUM CHLORIDE 0.9% 234 ML IV PRN (10:42)
[2018-12-23] MEDS: SODIUM BICARB INJ 100 MEQ in DEXTROSE 5% 1,000 ML IV SCH (10:43)
[2018-12-23] MEDS ORDERED: GLYCOPYRROLATE 0.4 MG/2 ML VIAL IV PRN (11:12)
[2018-12-23] MEDS ORDERED: LORazepam 2 MG/1 ML VIAL IV PRN (11:14)
[2018-12-23] MEDS ORDERED: MORPHINE 4 MG/1 ML VIAL IV PRN (11:14)
== END 2018-12-23 12:01 | disposition expired | DRG 286 ==
LOC: N.ED 15:34 → SUATTDRO 18:31 → N.EDINP 18:31 → N.3E 19:47 → N.CC 12-19 11:20
PROVIDERS: ADMIT Hospitalist; ATTEND Internal Medicine